=== PATIENT | female | born 1970 | race Caucasian/White ===

== ENCOUNTER 2017-10-02 17:52 | Emergency (ER) | payer MEDICARE, MEDICAID ==
--- NOTE | 2017-10-02 19:42 | ER Document Report ---
ED Extremity Problem, Lower - General Chief Complaint: Leg Pain Stated Complaint: PAIN IN LEG Time Seen by Provider: 10/02/17 19:42 Notes: 47-year-old female patient to the emergency department complaining of a one- week history of worsening left leg pain. Pain is located in the left knee and radiates down to the left calf. Cannot get comfortable. Denies any recent long trips or travel. Denies previous history of blood clot. Denies any exogenous estrogen use. - HPI Patient complains to provider of: Pain, Swelling. No: Altered sensation, Injury Location: Leg Severity: Moderate Associated symptoms: denies: Chest pain, Hurts to breath, Short of breath - Related Data Allergies/Adverse Reactions: nitrofurantoin [From Macrobid] Allergy (Verified 10/02/17 17:55) Past Medical History - General Information source: Patient - Social History Smoking Status: Smoker,Current Status Unk Cigarette use (# per day): No Frequency of alcohol use: None Drug Abuse: None Lives with: Family Family History: Reviewed & Not Pertinent Review of Systems - Review of Systems Constitutional: No symptoms reported EENT: No symptoms reported Cardiovascular: No symptoms reported Respiratory: No symptoms reported Gastrointestinal: No symptoms reported Genitourinary: No symptoms reported Female Genitourinary: No symptoms reported Musculoskeletal: Joint swelling, Muscle pain, Leg swelling Skin: No symptoms reported Hematologic/Lymphatic: No symptoms reported Neurological/Psychological: No symptoms reported Physical Exam - Vital signs Vitals: Temp Pulse Resp BP Pulse Ox 98.0 F 102 H 20 139/79 H 100 10/02/17 19:18 10/02/17 19:18 10/02/17 19:18 10/02/17 19:18 10/02/17 19:18 Interpretation: Normal - General General appearance: Appears well, Alert - HEENT Head: Normocephalic, Atraumatic Eyes: Normal Pupils: PERRL - Respiratory Respiratory status: No respiratory distress Chest status: Nontender Breath sounds: Normal Chest palpation: Normal - Cardiovascular Rhythm: Regular Heart sounds: Normal auscultation Murmur: No - Abdominal Inspection: Normal Distension: No distension Bowel sounds: Normal Tenderness: Nontender Organomegaly: No organomegaly - Back Back: Normal, Nontender - Extremities General upper extremity: Normal inspection, Nontender, Normal color, Normal ROM , Normal temperature General lower extremity: Normal inspection, Nontender, Tender, Normal color, Normal ROM, Normal temperature, Normal weight bearing, Other - There appears to be a slight asymmetrical swelling noted to the left lower extremity as compared to the right. There is tenderness to palpation in the left calf. Pain with dorsiflexion of the left foot which radiates up into the calf.. No: Edema, Arsh's sign - Neurological Neuro grossly intact: Yes Cognition: Normal Orientation: AAOx4 Willian Coma Scale Eye Opening: Spontaneous Willian Coma Scale Verbal: Oriented Willian Coma Scale Motor: Obeys Commands Willian Coma Scale Total: 15 Speech: Normal Motor strength normal: LUE, RUE, LLE, RLE Sensory: Normal - Psychological Associated symptoms: Normal affect, Normal mood - Skin Skin Temperature: Warm Skin Moisture: Dry Skin Color: Normal Course - Re-evaluation Re-evalutation: 10/02/17 20:18 Patient with significant pain in the left lower extremity with mild amount of asymmetrical swelling. Will do ultrasound. Get basic labs. Pain control and reassess. 10/02/17 21:32 Ultrasound negative for DVT. Labs fairly unremarkable. Uncertain etiology of patient's leg pain. Patient will need to follow-up with her regular doctor. Gave Toradol, fentanyl, hydrocodone. Uncomfortable giving her anything further. Scription monitoring program reveals patient has had 60 tablets prescribed 10 days ago by another provider. - Vital Signs Vital signs: Temp Pulse Resp BP Pulse Ox 98.0 F 102 H 20 139/79 H 100 10/02/17 19:18 10/02/17 19:18 10/02/17 19:18 10/02/17 19:18 10/02/17 19:18 - Laboratory Result Diagrams: 10/02/17 20:20 10/02/17 20:20 Laboratory results interpreted by me: 10/02/17 10/02/17 20:20 20:20 MCV 79 L MCH 26.3 L Calcium 10.6 H Discharge - Discharge Clinical Impression: Left leg pain Condition: Good Disposition: HOME, SELF-CARE Instructions: Leg Pain Nonspecific ([facility]) Additional Instructions: The cause of your leg pain is undetermined at this time but there appears to be no acute emergencies. Please follow-up with your regular doctor for pain control. Forms: Return to School
[2017-10-02] MEDS ORDERED: KETOROLAC TROMETHAMINE INJ/PF 30 MG/1 ML SDV IV ONE (20:01)
[2017-10-02] MEDS ORDERED: FENTANYL CITRATE INJ/PF 100 MCG/2 ML AMPUL IV ONE (20:02)
[2017-10-02] MEDS ORDERED: HYDROCODONE/ACETAMINOPHEN 5-325 MG TABLET PO ONE (20:55)
[2017-10-02 21:02] LABS: ABSOLUTE BASOPHILS # (AUTO) 0.1 10^3/uL (0.0-0.2); ABSOLUTE EOSINOPHILS # (AUTO) 0.1 10^3/uL (0.0-0.6); ABSOLUTE MONOCYTES (AUTO) 0.4 10^3/uL (0.1-1.4); ABSOLUTE NEUT (AUTO) 6.9 10^3/uL (1.7-8.2); BASOPHILS % (AUTO) 0.9 % (0-2); EOSINOPHILS % (AUTO) 1.1 % (0-6); HEMATOCRIT 41.5 % (36.0-47.0); HEMOGLOBIN 13.8 g/dL (12.0-15.5); INTERNATIONAL RATION (INR) 0.97; LYMPHOCYTES % (AUTO) 20.7 % (13-45); MEAN CORPUSCULAR HEMOGLOBIN 26.3 pg (27.0-33.4); MEAN CORPUSCULAR HGB CONC 33.3 g/dL (32.0-36.0); MEAN CORPUSCULAR VOLUME 79 fl (80-97); MONOCYTES % (AUTO) 4.4 % (3-13); PARTIAL THROMBOPLASTIN TIME 28.6 SEC (23.5-35.8); PLATELET COUNT 402 10^3/uL (150-450); PROTHROMBIN TIME 13.6 SEC (11.4-15.4); RED BLOOD COUNT 5.24 10^6/uL (3.72-5.28); RED CELL DISTRIBUTION WIDTH 13.8 % (11.5-14.0); SEGMENTED NEUTROPHILS % (AUTO) 72.9 % (42-78); TOTAL CELLS COUNTED % (AUTO) 100 %; WHITE BLOOD COUNT 9.5 10^3/uL (4.0-10.5)
[2017-10-02 21:20] LABS: ALANINE AMINOTRANSFERASE 27 U/L (9-52); ALBUMIN 4.5 g/dL (3.5-5.0); ALKALINE PHOSPHATASE 70 U/L (38-126); ANION GAP 11 (5-19); ASPARTATE AMINO TRANSFERASE 21 U/L (14-36); BILIRUBIN,DIRECT 0.2 mg/dL (0.0-0.4); BILIRUBIN,TOTAL 0.5 mg/dL (0.2-1.3); BLOOD UREA NITROGEN 13 mg/dL (7-20); CALCIUM 10.6 mg/dL (8.4-10.2); CARBON DIOXIDE 26 mmol/L (22-30); CHLORIDE 104 mmol/L (98-107); GLUCOSE 96 mg/dL (75-110); POTASSIUM 4.4 mmol/L (3.6-5.0); SODIUM 140.9 mmol/L (137-145); TOTAL PROTEIN 7.6 g/dL (6.3-8.2)
[2017-10-02] MEDS ORDERED: METHYLPREDNISOLONE INJ 125 MG/2 ML SDV IV ONE (21:48)
[2017-10-02 22:30] VITALS: BP 128/75
--- NOTE | 2017-10-03 11:44 | RADIOLOGY REPORT (SQ) ---
EXAM DESCRIPTION: VENOUS UNILATERAL LOWER COMPLETED DATE/TIME: 10/03/2017 11:37 am REASON FOR STUDY: left leg pain and swelling COMPARISON: None. TECHNIQUE: Dynamic and static barahona scale and color images acquired of the left leg venous system. Se lected spectral images acquired with additional compression and augmentation maneuvers. The contralat eral common femoral vein and saphenofemoral junction were also imaged. Images stored on PACS. LIMITATIONS: None. FINDINGS: COMMON FEMORAL: Normal phasicity, compression and augmentation. No visualized echogenic ma terial on barahona scale. No defects on color images. FEMORAL: Normal compression and augmentation. No visualized echogenic material on barahona scale. No defe cts on color images. POPLITEAL: Normal compression, augmentation. No visualized echogenic material on barahona scale. No defec ts on color images. CALF VESSELS: Normal compression, augmentation. No visualized echogenic material on barahona scale. No de fects on color images. GSV and SSV: Normal compression, augmentation. No visualized echogenic material on barahona scale. No def ects on color images. ANY DEEP VENOUS INSUFFICIENCY: Not evaluated. ANY EVIDENCE OF POPLITEAL CYST: No. OTHER: No other significant finding. CONTRALATERAL COMMON FEMORAL VEIN AND SAPHENOFEMORAL JUNCTION: Normal phasicity, compression and augmentation. No visualized echogenic material on barahona scale. No de fects on color images. IMPRESSION: NO EVIDENCE DVT OR SVT IN THE LEFT LEG. TECHNICAL DOCUMENTATION: JOB ID: [id number] [employer]- All Rights Reserved
== END 2017-10-02 22:00 | disposition home or self-care (01) ==
LOC: ER 17:52
DX: M79.1 Myalgia (principal); M25.562 Pain in left knee; M79.89 Other specified soft tissue disorders; Z88.1 Allergy status to other antibiotic agents
CPT/HCPCS: 99284; 96374; 96375; 36415; 82550; 85025; 85610; 85730; 80053; 93971; J3010; J2930; J1885; A9270

== ENCOUNTER 2020-03-07 17:22 | Emergency (ER) | payer MEDICARE, MEDICAID ==
[2020-03-07] MEDS ORDERED: MORPHINE SULFATE 10 MG/ML INJ IV ONE (18:03)
[2020-03-07] MEDS ORDERED: ONDANSETRON HCL INJ/PF 4 MG/2 ML SDV IV ONE (18:03)
--- NOTE | 2020-03-07 18:05 | ER Document Report ---
ED Medical Screen (RME) - General Chief Complaint: Vaginal Bleeding Stated Complaint: VAGINAL BLEEDING/LOW BACK PAIN Notes: Patient is a 50-year-old female with a past medical history of osteoarthritis of the low back, no history of prior abdominal surgeries who reports no menstrual cycle for over a year who presents to the emergency department today with a chief complaint of abnormal vaginal bleeding and pelvic pain. States is associated with a diffuse lower back discomfort as well. She states that she went and saw her [facility]IN[facility] recently who did a blood work and urinalysis work-up and found no cause for the pain or bleeding. She is pending reevaluation with her [facility] on Thursday morning, in 2 days. She states today while at the hairdresser she had 2 bouts of gushing bright red blood. Denies chest pain or shortness of breath. Denies syncopal or presyncopal episodes. Reports given the ongoing pain and increased vaginal bleeding she was concerned so she came for evaluation. I have treated and performed a rapid initial assessment of this patient. A co mprehensive ED assessment and evaluation of the patient, analysis of test results and completion of medical decision making process will be conducted by additional ED providers. PHYSICAL EXAMINATION: GENERAL: Well-appearing, well-nourished and in no acute distress. A&Ox4. Answers questions appropriately. - Related Data Allergies/Adverse Reactions: cefuroxime Allergy (Verified 03/07/20 17:54) nitrofurantoin [From Macrobid] Allergy (Verified 10/02/17 17:55) Past Medical History - Social History Frequency of alcohol use: None Drug Abuse: None Renal/ Medical History: Denies: Hx Peritoneal Dialysis Physical Exam - Vital signs Vitals: Temp Pulse Resp BP Pulse Ox 98.4 F 90 16 149/83 H 94 03/07/20 17:28 03/07/20 17:28 03/07/20 17:28 03/07/20 17:28 03/07/20 17:28 Course - Vital Signs Vital signs: Temp Pulse Resp BP Pulse Ox 98.4 F 90 16 149/83 H 94 03/07/20 17:55 03/07/20 17:28 03/07/20 17:28 03/07/20 17:28 03/07/20 17:28
[2020-03-07] MEDS ORDERED: ONDANSETRON 4 MG TAB.RAPDIS PO ONE (18:54)
[2020-03-07] MEDS ORDERED: MORPHINE SULFATE 10 MG/ML INJ IM ONE (18:54)
--- NOTE | 2020-03-07 19:09 | RADIOLOGY REPORT (SQ) ---
EXAM DESCRIPTION: U/S NON-OB PELVIS TV W/O DOP IMAGES COMPLETED DATE/TIME: 03/07/2020 6:50 pm REASON FOR STUDY: pelvic pain, bleeding LMP over year ago, recent heavy bleeding began on 0 COMPARISON: None. TECHNIQUE: Dynamic and static grayscale images acquired of the pelvis via transvaginal approach and recorded on PACS. Additional selected color Doppler and spectral images recorded. LIMITATIONS: None. FINDINGS: UTERUS: Contour normal. No mass. ENDOMETRIAL STRIPE: Heterogeneous, slightly thickened for the patient's age. CERVIX: 2.6 cm. RIGHT OVARY AND DOPPLER: Ovary not seen. LEFT OVARY AND DOPPLER: Ovary not well seen. FREE FLUID: None noted. OTHER: No other significant finding. MEASUREMENTS: UTERUS: 9.6 x 5.5 x 4.6 cm. ENDOMETRIAL STRIPE: 7.4 mm. RIGHT OVARY: Ovary not seen. LEFT OVARY: 2.5 x 1.4 x 1.8 cm. IMPRESSION: Slightly thickened endometrium. Consider surgical console. TECHNICAL DOCUMENTATION: JOB ID: [id number] [employer]- All Rights Reserved Rev-01/29 Reading location - IP/workstation name: [email or web address]
[2020-03-07 19:29] LABS: ABSOLUTE BASOPHILS # (AUTO) 0.1 10^3/uL (0.0-0.2); ABSOLUTE EOSINOPHILS # (AUTO) 0.1 10^3/uL (0.0-0.6); ABSOLUTE LYMPHOCYTES (AUTO) 1.9 10^3/uL (0.5-4.7); ABSOLUTE MONOCYTES (AUTO) 0.5 10^3/uL (0.1-1.4); ABSOLUTE NEUT (AUTO) 4.4 10^3/uL (1.7-8.2); BASOPHILS % (AUTO) 0.8 % (0-2); HEMATOCRIT 43.3 % (36.0-47.0); HEMOGLOBIN 14.3 g/dL (12.0-15.5); LYMPHOCYTES % (AUTO) 27.3 % (13-45); MEAN CORPUSCULAR HEMOGLOBIN 26.4 pg (27.0-33.4); MEAN CORPUSCULAR HGB CONC 33.2 g/dL (32.0-36.0); MEAN CORPUSCULAR VOLUME 80 fl (80-97); MONOCYTES % (AUTO) 7.8 % (3-13); PLATELET COUNT 362 10^3/uL (150-450); RED BLOOD COUNT 5.43 10^6/uL (3.72-5.28); RED CELL DISTRIBUTION WIDTH 14.1 % (11.5-14.0); SEGMENTED NEUTROPHILS % (AUTO) 62.1 % (42-78); TOTAL CELLS COUNTED % (AUTO) 100 %; WHITE BLOOD COUNT 7.1 10^3/uL (4.0-10.5)
[2020-03-07 19:34] LABS: APPEARANCE,URINE CLEAR; BILIRUBIN,URINE NEGATIVE (NEGATIVE); COLOR,URINE YELLOW; GLUCOSE, URINE NEGATIVE (NEGATIVE); KETONES,URINE 20 mg/dL (NEGATIVE); PROTEIN,URINE NEGATIVE (NEGATIVE); URINE SPECIFIC GRAVITY 1.012; UROBILINOGEN,URINE NEGATIVE mg/dL (<2.0)
[2020-03-07 19:35] LABS: INTERNATIONAL RATION (INR) 1.01; PROTHROMBIN TIME 13.3 SEC (11.4-15.4)
[2020-03-07 19:36] LABS: PARTIAL THROMBOPLASTIN TIME 26.4 SEC (23.5-35.8)
[2020-03-07 19:53] LABS: ALBUMIN 4.1 g/dL (3.5-5.0); ALKALINE PHOSPHATASE 87 U/L (38-126); ANION GAP 6 (5-19); ASPARTATE AMINO TRANSFERASE 26 U/L (14-36); BILIRUBIN,TOTAL 0.5 mg/dL (0.2-1.3); BLOOD UREA NITROGEN 13 mg/dL (7-20); CALCIUM 9.4 mg/dL (8.4-10.2); CARBON DIOXIDE 26 mmol/L (22-30); CHLORIDE 104 mmol/L (98-107); GLUCOSE 97 mg/dL (75-110); POTASSIUM 4.3 mmol/L (3.6-5.0); TOTAL PROTEIN 7.3 g/dL (6.3-8.2)
[2020-03-07] MEDS ORDERED: NORMAL SALINE 1000 ML 1,000 ML IV ONE (20:43)
--- NOTE | 2020-03-07 21:11 | ER Document Report ---
ED GI/ - General Chief Complaint: Vaginal Bleeding Stated Complaint: VAGINAL BLEEDING/LOW BACK PAIN Time Seen by Provider: 03/07/20 20:26 Primary Care Provider: [facility] [Provider Group] - 03/09/20 Mode of Arrival: Ambulatory Information source: Patient Notes: 50-year-old female presented to ED for complaint of vaginal bleeding that started on Thursday. She states he got better on Thursday and then started again today. She is alert oriented respirations regular nonlabored speaking in full sentences. She states she has not had any vaginal bleeding or pelvic pain in over a year so she thought she gone through menopause. She is now having some mild vaginal spotting. She states she did go to get a ultrasound already and has had blood work done. She states she has an evaluation pending at [facility] on Thursday morning. She states while she was at the hairdresser she had 2 bouts of bright red blood. She is stable vital signs at this time. - HPI Patient complains to provider of: Pelvic pain, Vaginal bleeding Onset: Other - Thursday stopped Thursday then started again today Timing/Duration: Intermittent Quality of pain: Cramping Severity at maximum: Moderate Severity in ED: Moderate Pain Level: 3 Location: Pelvis Vaginal bleeding (Compared to normal period): Spotting Associated symptoms: Other - vaginal bleeding,pelvic pain Exacerbated by: Movement Relieved by: Denies Similar symptoms previously: Yes Recently seen / treated by doctor: No - Related Data Allergies/Adverse Reactions: cefuroxime Allergy (Verified 03/07/20 17:54) nitrofurantoin [From Macrobid] Allergy (Verified 10/02/17 17:55) Past Medical History - General Information source: Patient - Social History Smoking Status: Former Smoker Frequency of alcohol use: None Drug Abuse: None Lives with: Family Family History: Reviewed & Not Pertinent Patient has homicidal ideation: No - Past Medical History Cardiac Medical History: Reports: None Pulmonary Medical History: Reports: None EENT Medical History: Reports: None Neurological Medical History: Reports: None Endocrine Medical History: Reports: None Renal/ Medical History: Reports: None Malignancy Medical History: Reports: None GI Medical History: Reports: None Musculoskeletal Medical History: Reports None Skin Medical History: Reports None Psychiatric Medical History: Reports: None Traumatic Medical History: Reports: None Infectious Medical History: Reports: None Surgical Hx: Negative Past Surgical History: Reports: None Review of Systems - Review of Systems Constitutional: No symptoms reported EENT: No symptoms reported Cardiovascular: No symptoms reported Respiratory: No symptoms reported Gastrointestinal: No symptoms reported Genitourinary: No symptoms reported Female Genitourinary: Vaginal bleeding, Other - pelvic pain Musculoskeletal: No symptoms reported Skin: No symptoms reported Hematologic/Lymphatic: No symptoms reported Neurological/Psychological: No symptoms reported Physical Exam - Vital signs Vitals: Temp Pulse Resp BP Pulse Ox 98.4 F 90 16 149/83 H 94 03/07/20 17:28 03/07/20 17:28 03/07/20 17:28 03/07/20 17:28 03/07/20 17:28 Interpretation: Normal - General General appearance: Appears well, Alert - HEENT Head: Normocephalic, Atraumatic Eyes: Normal Pupils: PERRL - Respiratory Respiratory status: No respiratory distress Chest status: Nontender Breath sounds: Normal Chest palpation: Normal - Cardiovascular Rhythm: Regular Heart sounds: Normal auscultation Murmur: No - Abdominal Inspection: Normal Distension: No distension Bowel sounds: Normal Tenderness: Nontender. No: Tender Organomegaly: No organomegaly - Genitourinary External exam: Normal Speculum exam: Normal Vaginal bleeding: Mild - spotting [place]iman[place] exam: Normal - Back Back: Normal, Nontender - Extremities General upper extremity: Normal inspection, Nontender, Normal color, Normal ROM, Normal temperature General lower extremity: Normal inspection, Nontender, Normal color, Normal ROM, Normal temperature, Normal weight bearing. No: Arsh's sign - Neurological Neuro grossly intact: Yes Cognition: Normal Orientation: AAOx4 Willian Coma Scale Eye Opening: Spontaneous [place] Coma Scale Verbal: Oriented [place] Coma Scale Motor: Obeys Commands [place] Coma Scale Total: 15 Speech: Normal Motor strength normal: LUE, RUE, LLE, RLE Sensory: Normal - Psychological Associated symptoms: Normal affect, Normal mood - Skin Skin Temperature: Warm Skin Moisture: Dry Skin Color: Normal Course - Re-evaluation Re-evalutation: 03/08/20 10:00 Discussed ultrasound and labs with patient and written report of ultrasound and labs given to patient to follow-up with [facility]. Patient verbalized understanding and agreement with this plan and patient was discharged home. - Vital Signs Vital signs: Temp Pulse Resp BP Pulse Ox 97.8 F 88 18 151/80 H 96 03/07/20 21:32 03/07/20 21:32 03/07/20 21:32 03/07/20 21:32 03/07/20 21:32 - Laboratory Result Diagrams: 03/07/20 19:00 03/07/20 19:00 Laboratory results interpreted by me: 03/07/20 03/07/20 03/07/20 19:00 19:00 19:11 RBC 5.43 H MCH 26.4 L RDW 14.1 H Sodium 136.2 L Urine Ketones 20 H Urine Blood LARGE H - Diagnostic Test Radiology reviewed: Image reviewed, Reports reviewed Discharge - Discharge Clinical Impression: Pelvic cramping, Vaginal bleeding Condition: Stable Disposition: HOME, SELF-CARE Additional Instructions: VAGINAL BLEEDING: You are having an episode of abnormal bleeding. Causes of abnormal vaginal bleeding can include miscarriage or tubal , tumors such as cancer or benign fibroids, medication effects, or hormone imbalance. Testing can eliminate unsuspected , tumors, or infection as a cause. "Dysfunctional uterine bleeding" is due to hormone imbalance, and is especially common at times when the normal cycle is disturbed -- whether by recent , use of control pills or hormones, or impending menopause. If the bleeding is innocent, most commonly a short course of hormones is given to restore the uterus to normal. Sometimes, the normal menstrual cycle corrects itself naturally. Sometimes, brief hormone therapy, or even a D&C is required. Your physician will advise you. Treatment for anemia may be required if bleeding is severe. You should rest and avoid intercourse until the bleeding is controlled. Call the doctor or return for re-examination if you feel faint, have increasing pain, or have a major increase in the amount of bleeding. Given you a copy of your ultrasound and your lab work. Please take these with you to your [facility] appointment on Thursday. They were not able to visualize your ovaries at this time you did have a thickened uterus. You do not have a . This is something the [facility] will need to reevaluate. You state you have an appointment on Thursday so please keep this appointment. Bleeding noted in your vaginal vault when I examined you. FOLLOW-UP CARE: If you have been referred to a physician for follow-up care, call the physicians office for an appointment as you were instructed or within the next two days. If you experience worsening or a significant change in your symptoms (very heavy bleeding with large clots of blood, passage of tissue, more severe abdominal / pelvic pain or cramping, feeling faint or severe weakness, fever, etc.), notify the physician immediately or return to the Emergency Department at any time for re-evaluation. OBSTETRIC-GYNECOLOGIC (OB-[facility]ISH[facility]) PHYSICIANS IN [place]: [facility] [address] [place] [address] [phone] Forms: Elevated Blood Pressure Referrals: [facility] [Provider Group] - 03/09/20
[2020-03-07 21:33] VITALS: BP 151/80
== END 2020-03-07 21:40 | disposition home or self-care (01) ==
LOC: ER 17:22
DX: N93.9 Abnormal uterine and vaginal bleeding, unspecified (principal); R10.2 Pelvic and perineal pain; Z87.891 Personal history of nicotine dependence; Z88.8 Allergy status to other drugs, medicaments and biological substances; Z88.1 Allergy status to other antibiotic agents
CPT/HCPCS: 99284; 96374; 36415; 83690; 84703; 85025; 85610; 85730; 80053; 81001; 76830; A9270; J2270; S0119